=== PATIENT | male | born 1990 | race Two or more races ===

== ENCOUNTER 2022-07-19 14:42 | Observation (INO) ==
[2022-07-19] MEDS ORDERED: SODIUM CHLORIDE 0.9% 1000ML 2,000 ML IV ONE (15:22)
[2022-07-19 15:44] LABS: Basophils # (auto) 0.02 K/uL (0-0.2); Basophils % (auto) 0.2 %; Hematocrit (blood only) 47.4 % (42.0-52.0); Hemoglobin 16.3 g/dl (14.0-18.0); Immature Granulocytes # (auto) 0.15 K/uL (0.01-0.20); Immature Granulocytes % (auto) 1.3 %; Lymphocytes # (auto) 2.44 K/uL (1.2-3.4); Lymphocytes % (auto) 20.6 %; Mean Corpuscular Hgb Conc 34.4 g/dL (32.0-36.0); Mean Corpuscular Volume 92.9 fL (80.0-100.0); Mean Platelet Volume 11.9 fL (9.4-12.4); Monocytes # (auto) 0.97 K/uL (0.11-0.59); Monocytes % (auto) 8.2 %; Neutrophils # (auto) 8.28 K/uL (1.40-6.50); Neutrophils % (auto) 69.7 %; Platelet Count 265 K/uL (130-400); RDW Coefficient of Variation 12.3 % (11.5-14.5); RDW Standard Deviation 42.4 fL (36.4-46.3); White Blood Count 11.86 K/ul (4.8-10.8)
[2022-07-19 15:58] LABS: Alanine Aminotransferase 25 U/L (7-52); Albumin Globulin Ratio 1.6 (0.9-2); Albumin Level 4.5 gm/dl (3.4-5.0); Alkaline Phosphatase 49 U/L (34-104); Anion Gap 8 (3-11); Aspartate Aminotransferase 13 U/L (13-39); BUN Creatinine Ratio 23.5 (10-20); Bilirubin,Total 0.6 mg/dl (0.2-1.0); Blood Urea Nitrogen 19 mg/dl (6-23); C Reactive Protein < 0.50 mg/dl (0-0.5); Calcium 9.4 mg/dl (8.6-10.3); Carbon Dioxide 31 mmol/L (21-32); Chloride 101 mmol/L (98-107); Est GFR (African American) 137.3 ml/min; Est GFR (Non-African American) 118.4 ml/min; Globulin 2.8 gm/dl (2.5-4.0); Glucose 104 mg/dl (70-99(Fasting)); Magnesium 2.3 mg/dl (1.7-2.4); Phosphorus 4.2 mg/dl (2.5-4.9); Potassium 3.6 mmol/L (3.5-5.1); Sodium 140 mmol/L (136-145); Total Protein 7.3 gm/dl (6.0-8.3)
[2022-07-19 16:11] LABS: Lyme Ab IgG w/WB Rflx Negative (Negative)
[2022-07-19 16:16] LABS: Lyme Ab IgM w/WB Rflx Positive (Negative)
[2022-07-19] MEDS ORDERED: OPTIRAY 320 500ml IV ONE (16:59)
--- NOTE | 2022-07-19 17:16 | CT Scan Report ---
CT angio head w con, CT angio neck with con, CT head/brain wo con CLINICAL HISTORY: 31 years-old Male with aphasia, bilateral lower facial weakness. Acute strokelik e symptoms COMPARISON STUDY: Brain MRI 07/13/2022 TECHNIQUE: Unenhanced axial CT scan of the brain is performed. Subsequently, following the IV adminis tration of 106 cc of Optiray, CT angiogram of the head and neck was performed from the aortic arch to the skull apex. Images are reviewed in the axial, sagittal, and coronal planes. 3-D MIPS images are created and assessed. IV contrast was administered without complication. All measurements were obtain ed according to NASCET criteria. A dose lowering technique was utilized adhering to the principles of ALARA. CT DOSE: 1196.50 mGy.cm FINDINGS: CT BRAIN: There is no acute intracranial hemorrhage, midline shift, hydrocephalus, acute territorial infarct or abnormal extra-axial collections. Ill-defined white matter aNo lesions throughout the left greater t flores right cerebral hemispheres redemonstrated with surrounding associated vasogenic edema, pronounced in the left frontal and parietal lobes. These lesions demonstrate areas of peripheral enhancement on the prior MRI. The mastoid air cells and middle ear cavities are clear. No calvarial fracture. Paranasal sinuses are clear. CT ANGIOGRAM OF THE HEAD AND NECK: Normal three-vessel morphology of the thoracic aortic arch. Patency of the nominate and imaged subcla vian arteries. The common and internal carotid arteries are patent. The bilateral anterior and middle cerebral arteries are also patent. The vertebrobasilar system and posterior cerebral arteries are wi paz patent. origin of the right posterior cerebral artery. There is no aneurysm, high-grade st enosis, or proximal branch occlusion identified. Dural sinuses appear patent. The lung apices appear clear. Unremarkable soft tissues. No acute fracture. IMPRESSION: 1. Compared to the study from 07/06/2022, once again there is no acute intracranial abnormality, aneury sm, dissection, high-grade stenosis or arterial occlusion. 2. The white matter lesions with peripheral enhancement and vasogenic edema best seen on the MRI from 07/13/2022 are suboptimally evaluated by CT technique. Again, the primary differential considerations would include demyelinating disease versus neoplasm. Close follow-up with neurology is needed. ACT 112: Negative or not required by law. The above report was generated using voice recognition software. It may contain grammatical, syntax o r spelling errors. Electronically signed by: Aaron Reyez M.D. 07/19/2022 5:15 PM
[2022-07-19 17:43] LABS: Appearance Urine Cloudy (Clear); Bacteria Urine Automated Negative (Negative); Bilirubin Urine Negative (Negative); Blood Urine Negative (Negative); Cast Urine Automated 0 /lpf (0-5); Color Urine Yellow; Glucose Urine UA Negative (Negative); Ketones Urine Negative (Negative); Leukocyte Esterase Urine Negative (Negative); Nitrite Urine Negative (Negative); Protein Urine Negative (Negative); RBC Urine Automated 0-4 /hpf (0-4); Specific Gravity Urine > 1.045 (1.000-1.030); Urobilinogen Urine Negative (Negative); pH Urine 7.5 (4.5-7.5)
--- NOTE | 2022-07-19 17:57 | Electrocardiogram Report ---
Test Reason : Blood Pressure : / mmHG Vent. Rate : 062 BPM Atrial Rate : 062 BPM P-R Int : 150 ms QRS Dur : 092 ms QT Int : 420 ms P-R-T Axes : 057 012 014 degrees QTc Int : 426 ms Poor data quality, interpretation may be adversely affected Normal sinus rhythm with sinus arrhythmia Incomplete right bundle branch block Borderline ECG When compared with ECG of 06-JUL-2022 12:22, No significant change was found Confirmed by Jed Torres ([id number]) on 07/19/2022 5:56:47 PM Referred By: Confirmed By:Jarvis Torres
[2022-07-19] MEDS ORDERED: methylPREDNISolone 1,000 MG in DEXTROSE 5% 250 ML IV STA (18:27)
--- NOTE | 2022-07-19 18:59 | History & Physical Report ---
Date of Service July 19, 2022 Assessment & Plan (1) Multiple sclerosis: Plan: Dysarthria, suspect MS -CThead, CTA h/neck: No acute abnormality, aneurysm, dissection, high-grade stenosis. White matter lesions with peripheral enhancement and vasogenic edema suboptimally evaluated by CT. -CTAhead: No acute aneurysm, dissection, stenosis, arterial occlusion. White matter lesions better appreciated on prior MRI. Leukocytosis of 11.86 No gross electrolyte abnormality UA bland Lyme IgM is again positive, without positive IgG. Prior Western blot pending negative. Will defer conversion to Rocephin, and follow-up for repeat Western blot at this time. If positive, would switch to Rocephin for [employer] coverage Case was discussed with on-call neurology prior to admission. Recommended to continue IV steroids 1 g daily. Complete pending MS work-up including MRI of cervical spine with and without contrast, lumbar puncture with MS panel while inpatient. Follow-up with IR a.m. 07/20 for LP with IR PA Due to dysarthria and feeling of tongue heaviness, and dysarthria we will keep n.p.o. pending speech eval. On admission no airway obstruction, uvula midline, tongue swelling not appreciated Prior MRI 07/13: Multiple intraparenchymal lesion, largest seen within the left centrum semiovale extending to the periventricular region measuring 2.3 x 1.5 x 2. 1 cm . No cysts significant edema seen surrounding the lesions.Differential diagnosis includes metastatic disease, atypical inflammatory, processes such as multiple sclerosis or infectious process. Hypovitaminosis D Levels previously very low, 29 Repeat level pending DVT prophylaxis: Pharmacal prophylaxis deferred pending LP. SCDs Diet: N.p.o. due to dysarthria and tongue heaviness, advance once able to tolerate bedside swallow and symptoms improved CODE STATUS: Full code Disposition: Medical/surgical (2) Vitamin D deficiency: (3) Aphasia: History of Present Illness Primary Care Provider: NO PCP Khoa is a 31-year-old male with recently diagnosed with multiple sclerosis who presents with worsening dysarthria without receptive aphasia. Patient has difficulty speaking; however he is having more difficulty forming words and is able to communicate via text or whiteboard without difficulty. He reports that his symptoms began with dysarthria and some mild headache 2 weeks ago for which she was seen for Lyme and received doxycycline, however his symptoms worsened after 1 week and he presented for reevaluation. He reports he was told he had MS with multiple areas in the MRI which were abnormal. He was given 3 doses of IV steroids, and then started on methylprednisolone. He reports that he does have more blurry vision in the last week which he is not sure whether or not this is due to his glasses. He has not had any double vision/diplopia. Denies fever, chills, sweats. No nausea/vomiting. No abdominal pain. No chest pain. No shortness of breath. He does not have a headache at time of bedside assessment. Has not taken oypl-pus-zazlnpo medicines, reports he only takes methylprednisolone which she did bring with him and the antibiotic as he was previously described. History of allergies with OTC treatment. 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 He does endorse some dizziness when standing still, and slight headache before coming in which is improved at time of bedside assessment Medical History: Reviewed Medications: Reviewed Surgical History: Reviewed Family history: Reviewed Allergies: Reviewed Social History: No tobacco/alcohol use Code Status: Full code Allergies Allergy/AdvReac Type Severity Reaction Status Date / Time aspirin Allergy Unknown Verified 07/17/22 07:45 Home Medications Medication Instructions Recorded Confirmed Type doxycycline monohydrate 100 mg 100 mg PO BID 07/13/22 07/19/22 History tablet cetirizine 10 mg capsule (Zyrtec) 10 mg PO DAILY PRN Allergy Symptoms 07/14/22 07/19/22 History methylprednisolone 4 mg tablets in 4 mg PO .COMPLEX #21 ea 07/16/22 07/19/22 Rx a dose pack (Medrol (Ze)) Past Med/Surg History Surgical History H/O hemorrhoidectomy S/P tonsillectomy Family History Mother Hypertension Social History Smoking Status: Never smoker Feels Safe at Home: Yes Review of Systems Review of Systems: All systems reviewed & are unremarkable except as noted in HPI & below Physical Exam Physical Exam: General: A&Ox3. NAD. Cooperative. HEENT: Atraumatic, normocephalic. Pulm: CTAB A&P. -wheezes, -rales, -rhonchi. Symmetrical chest rise. No increased work of breathing. No respiratory distress. Cardiac: RRR, -mrg. Radial pulses intact and symmetrical. Abdominal: Nontender, nondistended, soft. BS present. Neurologic: Pupils equal and reactive to light. EOM intact without gaze preference or deviation. Vision/hearing grossly intact. Vision without field cuts, patient does endorse some blurry vision which she is not sure whether is due to glasses but is acutely worse in the last week. No field cuts, no diplopia on EOM testing. No facial asymmetry. Midline tongue protrusion patient is with pronounced dysarthria. No expressive or receptive aphasia, is able to communicate normally using his phone to text. MOTOR: Upper extremity: 5/5 hog slaughterer strength, elbow flexion, elbow extension bilaterally. Soft touch intact in hands bilaterally without asymmetry. Lower extremity: Ankle dorsiflexion/plantarflexion 5/5 bilaterally, sensation intact bilaterally without asymmetry. Results & Data Results & Data Vital Signs (Past 12 Hours) Vital Signs Temp Pulse Pulse Pulse Resp BP BP 07/19/22 15:39 07/19/22 15:10 71 20 140/95 07/19/22 15:09 74 20 07/19/22 15:05 60 07/19/22 14:45 36.6 C 83 20 161/101 H BP Pulse Ox O2 Del Method 07/19/22 15:39 97 Room Air 07/19/22 15:10 98 Room Air 07/19/22 15:09 140/95 96 Room Air 07/19/22 15:05 07/19/22 14:45 96 Room Air PG Care Time/CCT Total # of Minutes Spent Total Time Spent with Patient: Total time spent is greater than 50% in coordination of care (as documented) at patient's floor/unit and/or counseling patient: Coding Level of Care Code 43371 INT INP/OBS CARE 2/55MIN Diagnoses Multiple sclerosis G35 Vitamin D deficiency E55.9 Aphasia R47.01
--- NOTE | 2022-07-19 22:30 | Emergency Department Note ---
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 He further adds that he feels numbness at the lower aspect bilaterally of his face. He denies trouble swallowing or breathing. Denies any fevers, chills, cough, congestion, GI or symptoms. He did have a positive Lyme screen during his emergency department evaluation last week however his Western blot subsequently was negative and so he is not currently on treatment for Lyme. He denies any known tick bites otherwise. On my evaluation the patient is no acute distress, afebrile stable vital signs. He appears clinically dry. He exhibits mild weakness of the bilateral aspects of the lower face without overt facial droop. He exhibits moderate-severe expressive aphasia where words are unintelligible at times though he is able to communicate given context. He has no focal extremity weakness. EKG without overt acute ischemia. WBC 11.8K nonspecific. H/H and platelets within normal limits. Chemistry without metabolic acidosis. Electrolytes LFTs without significant abnormality. ESR and CRP are not elevated. TSH within normal limits. UA without convincing evidence of infection. Lyme screen was again positive for IgM antibody with Western blot pending. Covid-19 RNA, NAAT negative. CT head and CTA of the head and neck were negative for acute abnormalities though unable to optimally assess previously seen white matter lesions. Case was discussed with Dr. Garcia, Neurology on-call. Appreciate consultation/recommendations and given the patient's acute worsening in severity of symptoms agrees with plan for admission for IV steroids recommending 1000 mg of Solu-Medrol for the next 3 days. Additionally recommends proceeding with the patient's recently planned outpatient evaluation including MRI of the cervical spine with and without contrast and lumbar puncture and MS panel. Case was discussed with Dr. Talbot, [facility] hospitalist, who will evaluate the patient for admission. Triage Nursing notes reviewed and agree them. Prior/outside medical records reviewed Vital Signs: reviewed Differential diagnosis: Infection, dehydration, metabolic abnormality, hypo/hyperglycemia, electrolyte disturbance, anemia, hypoxia, cardiac sources, intracerebral event, toxicologic, neurologic, as well as other pathologies. ER treatment provided: See below. Diagnostics interpreted by me: ECG: Normal sinus rhythm with sinus arrhythmia, 62 bpm, no ectopy, incomplete right bundle branch block, no overt ST elevation or depression, QTc 426, QRS 92. Cardiac Monitoring: An order for continuous cardiac monitoring was placed and demonstrated Normal sinus rhythm with sinus arrhythmia, 62 bpm, no ectopy. Laboratory studies: See below Imaging studies: See below Consultation(s): Dr. Garcia, Neurology on-call. Dr. Talbot, [facility] hospitalist on-call. 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 He further adds that he feels numbness at the lower aspect bilaterally of his face. He denies trouble swallowing or breathing. Denies any fevers, chills, cough, congestion, GI or symptoms. He did have a positive Lyme screen during his emergency department evaluation last week however his Western blot subsequently was negative and so he is not current ly on treatment for Lyme. He denies any known tick bites otherwise. ROS: See above HPI for pertinent positives & negatives. A total of 10 systems reviewed and were otherwise negative. VITALS:See Below PHYSICAL EXAMINATION: GENERAL: Awake, alert, well-appearing, in no distress HENT: Normocephalic, atraumatic. Oropharynx with dry mucous membranes and otherwise unremarkable. No tongue elevation or trismus. EYES: Normal conjunctiva. Sclera non-icteric. NECK: Supple. No nuchal rigidity. FROM. No JVD. No stridor. RESPIRATORY: Clear to auscultation. CARDIAC: Regular rate, normal rhythm. Extremities warm and well perfused. Pulses equal. ABDOMEN: Soft, non-distended. No tenderness to palpation. No rebound or guarding . No masses. RECTAL: Deferred. MUSCULOSKELETAL: Chest examination reveals no tenderness. The back is symmetrical on inspection without obvious abnormality. There is no CVA tenderness to palpation. No joint edema. LOWER EXTREMITIES: Calves are equal size bilaterally and non-tender. No edema. No discoloration. NEURO: Mild weakness of the bilateral aspects of the lower face without overt facial droop. He exhibits moderate-severe expressive aphasia where words are unintelligible at times though he is able to communicate given context. 5/5 strength and SILT x 4 extremities. Cerebellar function intact including [id number], alternating palms, [id number]. SKIN: No rash or jaundice noted. 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 Beliefs That Will Affect Care: None Current Living Situation: Alone Other Information That Helps Us Care for You: No Feels Safe at Home: Yes Safety Concerns: Feels Safe At This Time Assistive Devices: Glasses Allergies Allergies Allergy/AdvReac Type Severity Reaction Status Date / Time aspirin Allergy Unknown Verified 07/17/22 07:45 Home Meds Home Medications Medication Instructions Recorded Confirmed doxycycline monohydrate 100 mg 100 mg PO BID 07/13/22 07/19/22 tablet cetirizine 10 mg capsule (Zyrtec) 10 mg PO DAILY PRN Allergy Symptoms 07/14/22 07/19/22 Previous Rx's Medication Instructions Recorded methylprednisolone 4 mg tablets in 4 mg PO .COMPLEX #21 ea 07/16/22 a dose pack (Medrol (Ze)) Results & Data (ED) Vital Signs Vital Signs - 24 hr 07/19/22 14:45 07/19/22 15:05 07/19/22 15:09 Temperature 36.6 C Temperature Source Temporal Artery Scan Pulse Rate 83 60 Pulse Rate [Apical] 74 Pulse Rate [Left Apical] Pulse Rhythm [Left Apical] Pulse Strength [Left Apical] Respiratory Rate 20 20 Respiratory Effort / Characteristics Non-Labored Non-Labored Respiratory Depth Normal Normal Blood Pressure 161/101 H Blood Pressure [Left Arm] Blood Pressure [Right Arm] 140/95 Blood Pressure Mean 121 Blood Pressure Mean [Left Arm] Blood Pressure Mean [Right Arm] 110 Pulse Oximetry 96 96 Oxygen Delivery Method Room Air Room Air Sepsis Recent Fever Within 48 Hours No Sepsis New/Unexplained Change in Mental Status Yes Sepsis Action Taken by Nursing No Action Required 07/19/22 15:10 07/19/22 15:39 Temperature Temperature Source Pulse Rate Pulse Rate [Apical] Pulse Rate [Left Apical] 71 Pulse Rhythm [Left Apical] Regular Pulse Strength [Left Apical] Normal Respiratory Rate 20 Respiratory Effort / Characteristics Non-Labored Spontaneous Respiratory Depth Normal Blood Pressure Blood Pressure [Left Arm] 140/95 Blood Pressure [Right Arm] Blood Pressure Mean Blood Pressure Mean [Left Arm] 110 Blood Pressure Mean [Right Arm] Pulse Oximetry 98 97 Oxygen Delivery Method Room Air Room Air Sepsis Recent Fever Within 48 Hours Sepsis New/Unexplained Change in Mental Status Sepsis Action Taken by Nursing Laboratory Data Attestation: I reviewed the patient's lab results. 07/19/22 15:07 07/19/22 15:07 Lab Results 07/19/22 07/19/22 07/19/22 Range/Units 15:07 15:07 15:07 WBC 11.86 H (4.8-10.8) K/ul RBC 5.10 (4.70-6.10) M/uL Hgb 16.3 (14.0-18.0) g/dl Hct 47.4 (42.0-52.0) % MCV 92.9 (80.0-100.0) fL MCH 32.0 (25.0-34.0) pg MCHC 34.4 (32.0-36.0) g/dL RDW Std Deviation 42.4 (36.4-46.3) fL RDW Coeff of Erma 12.3 (11.5-14.5) % Plt Count 265 (130-400) K/uL MPV 11.9 (9.4-12.4) fL Immature Gran % (Auto) 1.3 % Neut % (Auto) 69.7 % Lymph % (Auto) 20.6 % Levy % (Auto) 8.2 % Eos % (Auto) 0.0 % Baso % (Auto) 0.2 % Neut # (Auto) 8.28 H (1.40-6.50) K/uL Lymph # (Auto) 2.44 (1.2-3.4) K/uL Levy # (Auto) 0.97 H (0.11-0.59) K/uL Eos # (Auto) 0.00 (0-0.50) K/uL Baso # (Auto) 0.02 (0-0.2) K/uL Immature Gran # (Auto) 0.15 (0.01-0.20) K/uL ESR 10 (0-15) mm/hr Sodium 140 (136-145) mmol/L Potassium 3.6 (3.5-5.1) mmol/L Chloride 101 (98-107) mmol/L Carbon Dioxide 31 (21-32) mmol/L Anion Gap 8 (3-11) BUN 19 (6-23) mg/dl Creatinine 0.81 (0.6-1.4) mg/dl Est Cr Clr Drug Dosing Not Reportable Est GFR ( Amer) 137.3 ml/min Est GFR (Non-Af Amer) 118.4 ml/min BUN/Creatinine Ratio 23.5 H (10-20) Glucose 104 H (70-99(Fasting)) mg/dl Calcium 9.4 (8.6-10.3) mg/dl Phosphorus 4.2 (2.5-4.9) mg/dl Magnesium 2.3 (1.7-2.4) mg/dl Total Bilirubin 0.6 (0.2-1.0) mg/dl AST 13 (13-39) U/L ALT 25 (7-52) U/L Alkaline Phosphatase 49 (34-104) U/L C-Reactive Protein < 0.50 (0-0.5) mg/dl Total Protein 7.3 (6.0-8.3) gm/dl Albumin 4.5 (3.4-5.0) gm/dl Globulin 2.8 (2.5-4.0) gm/dl Albumin/Globulin Ratio 1.6 (0.9-2) TSH (0.300-4.500) uIu/ml Urine Color Urine Appearance (Clear) Urine pH (4.5-7.5) Ur Specific [place] (1.000-1.030) Urine Protein (Negative) Urine Glucose (UA) (Negative) Urine Ketones (Negative) Urine Blood (Negative) Urine Nitrite (Negative) Urine Bilirubin (Negative) Urine Urobilinogen (Negative) Ur Leukocyte Esterase (Negative) Urine WBC (Auto) (0-5) /hpf Urine RBC (Auto) (0-4) /hpf U Hyaline Cast (Auto) (0-5) /lpf U Epithel Cells (Auto) (0-5) /lpf Urine Bacteria (Auto) (Negative) Lyme Disease IgG Ab (Negative) Lyme Disease IgM Ab (Negative) 07/19/22 07/19/22 07/19/22 Range/Units 15:07 15:07 17:15 WBC (4.8-10.8) K/ul RBC (4.70-6.10) M/uL Hgb (14.0-18.0) g/dl Hct (42.0-52.0) % MCV (80.0-100.0) fL MCH (25.0-34.0) pg MCHC (32.0-36.0) g/dL RDW Std Deviation (36.4-46.3) fL RDW Coeff of Erma (11.5-14.5) % Plt Count (130-400) K/uL MPV (9.4-12.4) fL Immature Gran % (Auto) % Neut % (Auto) % Lymph % (Auto) % Levy % (Auto) % Eos % (Auto) % Baso % (Auto) % Neut # (Auto) (1.40-6.50) K/uL Lymph # (Auto) (1.2-3.4) K/uL Levy # (Auto) (0.11-0.59) K/uL Eos # (Auto) (0-0.50) K/uL Baso # (Auto) (0-0.2) K/uL Immature Gran # (Auto) (0.01-0.20) K/uL ESR (0-15) mm/hr Sodium (136-145) mmol/L Potassium (3.5-5.1) mmol/L Chloride (98-107) mmol/L Carbon Dioxide (21-32) mmol/L Anion Gap (3-11) BUN (6-23) mg/dl Creatinine (0.6-1.4) mg/dl Est Cr Clr Drug Dosing Est GFR ( Amer) ml/min Est GFR (Non-Af Amer) ml/min BUN/Creatinine Ratio (10-20) Glucose (70-99(Fasting)) mg/dl Calcium (8.6-10.3) mg/dl Phosphorus (2.5-4.9) mg/dl Magnesium (1.7-2.4) mg/dl Total Bilirubin (0.2-1.0) mg/dl AST (13-39) U/L ALT (7-52) U/L Alkaline Phosphatase (34-104) U/L C-Reactive Protein (0-0.5) mg/dl Total Protein (6.0-8.3) gm/dl Albumin (3.4-5.0) gm/dl Globulin (2.5-4.0) gm/dl Albumin/Globulin Ratio (0.9-2) TSH 1.987 (0.300-4.500) uIu/ml Urine Color Yellow Urine Appearance Cloudy A (Clear) Urine pH 7.5 (4.5-7.5) Ur Specific [place] > 1.045 H (1.000-1.030) Urine Protein Negative (Negative) Urine Glucose (UA) Negative (Negative) Urine Ketones Negative (Negative) Urine Blood Negative (Negative) Urine Nitrite Negative (Negative) Urine Bilirubin Negative (Negative) Urine Urobilinogen Negative (Negative) Ur Leukocyte Esterase Negative (Negative) Urine WBC (Auto) 1-5 (0-5) /hpf Urine RBC (Auto) 0-4 (0-4) /hpf U Hyaline Cast (Auto) 0 (0-5) /lpf U Epithel Cells (Auto) 5-10 H (0-5) /lpf Urine Bacteria (Auto) Negative (Negative) Lyme Disease IgG Ab Negative (Negative) Lyme Disease IgM Ab Positive A (Negative) Administered Medications Potassium Chloride/Sodium Chloride (Normal Saline W/20 Meq Kcl) 20 meq in 1,000 mls @ 120 mls/hr IV .Q8H20M MARTINEZ; Protocol Stop: 08/18/22 22:14 Last Admin: 07/20/22 00:25 Dose: 120 mls/hr Documented By: NMS Discontinued Medications Gadobutrol (Gadobutrol 65ml Vial) 8 ml IV ONCE ONE Stop: 07/19/22 23:17 Last Admin: 07/19/22 23:16 Dose: 8 ml Documented By: RUBY Sodium Chloride (Nss 1000ml) 2,000 mls @ 999 mls/hr IV .Q2H1M ONE Stop: 07/19/22 17:22 Last Infusion: 07/19/22 17:45 Dose: 0 mls/hr Documented By: Admin: 07/19/22 15:36 Dose: 999 mls/hr Documented By: TW Methylprednisolone 1,000 mg/ (Dextrose) 266 mls @ 266 mls/hr IV NOW STA Stop: 07/19/22 19:26 Last Infusion: 07/19/22 21:38 Dose: 0 mls/hr Documented By: Admin: 07/19/22 20:36 Dose: 266 mls/hr Documented By: EMB Ioversol (Optiray 320 500ml) 106 ml IV ONCE ONE Stop: 07/19/22 17:00 Last Admin: 07/19/22 16:59 Dose: 106 ml Documented By: EAB Imaging Data Radiologist's Impression: Head CT 07/19/22 15:19 CT angio head w con, CT angio neck with con, CT head/brain wo con CLINICAL HISTORY: 31 years-old Male with aphasia, bilateral lower facial weakness. Acute strokelike symptoms COMPARISON STUDY: Brain MRI 07/13/2022 TECHNIQUE: Unenhanced axial CT scan of the brain is performed. Subsequently, following the IV administration of 106 cc of Optiray, CT angiogram of the head and neck was performed from the aortic arch to the skull apex. Images are r eviewed in the axial, sagittal, and coronal planes. 3-D MIPS images are created and assessed. IV contrast was administered without complication. All measurements were obtained according to NASCET criteria. A dose lowering technique was utilized adhering to the principles of ALARA. CT DOSE: 1196.50 mGy.cm FINDINGS: CT BRAIN: There is no acute intracranial hemorrhage, midline shift, hydrocephalus, acute territorial infarct or abnormal extra-axial collections. Ill-defined white matter aNo lesions throughout the left greater than right cerebral hemispheres redemonstrated with surrounding associated vasogenic edema, pronounced in the left frontal and parietal lobes. These lesions demonstrate areas of peripheral enhancement on the prior MRI. The mastoid air cells and middle ear cavities are clear. No calvarial fracture. Paranasal sinuses are clear. CT ANGIOGRAM OF THE HEAD AND NECK: Normal three-vessel morphology of the thoracic aortic arch. Patency of the nominate and imaged subclavian arteries. The common and internal carotid arteries are patent. The bilateral anterior and middle cerebral arteries are also patent. The vertebrobasilar system and posterior cerebral arteries are widely patent. origin of the right posterior cerebral artery. There is no aneurysm, high-grade stenosis, or proximal branch occlusion identified. Dural sinuses appear patent. The lung apices appear clear. Unremarkable soft tissues. No acute fracture. IMPRESSION: 1. Compared to the study from 07/06/2022, once again there is no acute intracranial abnormality, aneurysm, dissection, high-grade stenosis or arterial occlusion. 2. The white matter lesions with peripheral enhancement and vasogenic edema best seen on the MRI from 07/13/2022 are suboptimally evaluated by CT technique. Again, the primary differential considerations would include demyelinating disease versus neoplasm. Close follow-up with neurology is needed. ACT 112: Negative or not required by law. The above report was generated using voice recognition software. It may contain grammatical, syntax or spelling errors. Electronically signed by: Aaron Reyez M.D. 07/19/2022 5:15 PM Head CTA 07/19/22 15:19 CT angio head w con, CT angio neck with con, CT head/brain wo con CLINICAL HISTORY: 31 years-old Male with aphasia, bilateral lower facial weakness. Acute strokelike symptoms COMPARISON STUDY: Brain MRI 07/13/2022 TECHNIQUE: Unenhanced axial CT scan of the brain is performed. Subsequently, following the IV administration of 106 cc of Optiray, CT angiogram of the head a nd neck was performed from the aortic arch to the skull apex. Images are reviewed in the axial, sagittal, and coronal planes. 3-D MIPS images are created and assessed. IV contrast was administered without complication. All measurements were obtained according to NASCET criteria. A dose lowering tech nique was utilized adhering to the principles of ALARA. CT DOSE: 1196.50 mGy.cm FINDINGS: CT BRAIN: There is no acute intracranial hemorrhage, midline shift, hydrocephalus, acute territorial infarct or abnormal extra-axial collections. Ill-defined white matter aNo lesions throughout the left greater than right cerebral hemispheres redemonstrated with surrounding associated vasogenic edema, pronounced in the left frontal and parietal lobes. These lesions demonstrate areas of peripheral enhancement on the prior MRI. The mastoid air cells and middle ear cavities are clear. No calvarial fracture. Paranasal sinuses are clear. CT ANGIOGRAM OF THE HEAD AND NECK: Normal three-vessel morphology of the thoracic aortic arch. Patency of the nominate and imaged subclavian arteries. The common and internal carotid arteries are patent. The bilateral anterior and middle cerebral arteries are also patent. The vertebrobasilar system and posterior cerebral arteries are widely patent. origin of the right posterior cerebral artery. There is no aneurysm, high-grade stenosis, or proximal branch occlusion identified. Dural sinuses appear patent. The lung apices appear clear. Unremarkable soft tissues. No acute fracture. IMPRESSION: 1. Compared to the study from 07/06/2022, once again there is no acute intracranial abnormality, aneurysm, dissection, high-grade stenosis or arterial occlusion. 2. The white matter lesions with peripheral enhancement and vasogenic edema best seen on the MRI from 07/13/2022 are suboptimally evaluated by CT technique. Again, the primary differential considerations would include demyelinating disease versus neoplasm. Close follow-up with neurology is needed. ACT 112: Negative or not required by law. The above report was generated using voice recognition software. It may contain grammatical, syntax or spelling errors. Electronically signed by: Aaron Reyez M.D. 07/19/2022 5:15 PM Neck CTA 07/19/22 15:19 CT angio head w con, CT angio neck with con, CT head/brain wo con CLINICAL HISTORY: 31 years-old Male with aphasia, bilateral lower facial weakness. Acute strokelike symptoms COMPARISON STUDY: Brain MRI 07/13/2022 TECHNIQUE: Unenhanced axial CT scan of the brain is performed. Subsequently, following the IV administration of 106 cc of Optiray, CT angiogram of the head and neck was performed from the aortic arch to the skull apex. Images are reviewed in the axial, sagittal, and coronal planes. 3-D MIPS images are created and assessed. IV contrast was administered without complication. All everton surements were obtained according to NASCET criteria. A dose lowering technique was utilized adhering to the principles of ALARA. CT DOSE: 1196.50 mGy.cm FINDINGS: CT BRAIN: There is no acute intracranial hemorrhage, midline shift, hydrocephalus, acute territorial infarct or abnormal extra-axial collections. Ill-defined white matter aNo lesions throughout the left greater than right cerebral hemispheres redemonstrated with surrounding associated vasogenic edema, pronounced in the left frontal and parietal lobes. These lesions demonstrate areas of peripheral enhancement on the prior MRI. The mastoid air cells and middle ear cavities are clear. No calvarial fracture. Paranasal sinuses are clear. CT ANGIOGRAM OF THE HEAD AND NECK: Normal three-vessel morphology of the thoracic aortic arch. Patency of the nominate and imaged subclavian arteries. The common and internal carotid arteries are patent. The bilateral anterior and middle cerebral arteries are also patent. The vertebrobasilar system and posterior cerebral arteries are widely patent. origin of the right posterior cerebral artery. There is no aneurysm, high-grade stenosis, or proximal branch occlusion identified. Dural sinuses appear patent. The lung apices appear clear. Unremarkable soft tissues. No acute fracture. IMPRESSION: 1. Compared to the study from 07/06/2022, once again there is no acute intracranial abnormality, aneurysm, dissection, high-grade stenosis or arterial occlusion. 2. The white matter lesions with peripheral enhancement and vasogenic edema best seen on the MRI from 07/13/2022 are suboptimally evaluated by CT technique. Again, the primary differential considerations would include demyelinating disease versus neoplasm. Close follow-up with neurology is needed. ACT 112: Negative or not required by law. The above report was generated using voice recognition software. It may contain grammatical, syntax or spelling errors. Electronically signed by: Aaron Reyez M.D. 07/19/2022 5:15 PM Discharge Plan Visit Data Chief Complaint: Allergic Reaction Stated Complaint: DIFFICULTY TALKING, SWOLLEN TONGUE, DIZZY, VISION ED Provider: Oumar Vazquez Discharge Problem: Demyelinating disease, Aphasia, Borderline Lyme serology Patient Disposition: Admitted As Inpatient Discharge Instructions Interventions: ED Discharge Assessment Last Done: 07/19/22 22:08
[2022-07-19] MEDS ORDERED: GADOBUTROL 65ML VIAL IV ONE (23:16)
[2022-07-20] MEDS: NSS + 20MEQ KCL 20 MEQ/1,000 ML BAG IV SCH ×2 (00:25→10:02)
[2022-07-20] MEDS ORDERED: Nursing to Pharmacy Communication SCH (00:30)
--- NOTE | 2022-07-20 01:05 | Magnetic Resonance Report ---
Exam(s): MRI C SPINE IV Amt: 8cc gadavist EXAM: MR Cervical Spine With Intravenous Contrast CLINICAL HISTORY: Reason for exam: MS josé antonio. TECHNIQUE: Magnetic resonance images of the cervical spine with intravenous contrast in multiple planes. CONTRAST: Patient received 8cc gadavist of IV contrast COMPARISON: Comparison made to prior CT angiogram of the neck from July 06, 2022. FINDINGS: Vertebrae: There are 7 cervical type vertebral bodies with a mild generalized curve to the left and shallow cervical lordosis. There is normal vertebral body height and alignment. The bone marrow signal is normal. No acute fracture. Spinal cord: The cord is normal in size, shape and signal characteristics. The craniocervical junction is normal without evidence of Chiari malformation. No abnormal enhancement. Soft tissues: The cervical flow voids are intact. DISCS/SPINAL CANAL/NEURAL FORAMINA: C2-C3: The intervertebral disc is normal. Minimal facet arthropathy with mild sinus. C3-C4: There is mild disc degeneration with disc desiccation and annular disc bulge flattening the intrathecal sac. There is minimal to mild facet arthropathy with mild synovitis. C4-C5: There is mild disc degeneration with disc desiccation and annular disc bulge eccentric to the right flattening the ventral thecal sac. There is mild facet arthropathy with mild synovitis. C5-C6: There is mild disc degeneration with disc desiccation and annular disc bulge eccentric to the right flattening the ventral thecal sac. There is mild facet arthropathy with mild synovitis. C6-C7: The intervertebral disc is normal. There is mild right and minimal left facet arthropathy with mild synovitis. C7-T1: The intervertebral disc is normal. There is mild facet joint arthropathy with mild synovitis. IMPRESSION: 1. Mild disc degeneration at C3-4, C4-5 and C5-6 with annular disc bulging flattening the ventral thecal sac.. 2. There is no spinal canal stenosis. 3. No evidence of neural foraminal stenosis. 4. Minimal to mild facet arthropathy with mild synovitis. 5. No evidence of fracture, infection, tumor or myelopathy. Electronically signed by: Marielos Rajan MD 07/20/22 01:04 AM
[2022-07-20 07:42] LABS: Hematocrit (blood only) 47.1 % (42.0-52.0); Hemoglobin 16.2 g/dl (14.0-18.0); Mean Corpuscular Hgb Conc 34.4 g/dL (32.0-36.0); Mean Corpuscular Volume 93.1 fL (80.0-100.0); Mean Platelet Volume 11.4 fL (9.4-12.4); Platelet Count 250 K/uL (130-400); RDW Coefficient of Variation 12.1 % (11.5-14.5); RDW Standard Deviation 42.1 fL (36.4-46.3); Red Blood Count 5.06 M/uL (4.70-6.10); White Blood Count 9.58 K/ul (4.8-10.8)
[2022-07-20 07:59] LABS: BUN Creatinine Ratio 22.7 (10-20); Calcium 9.3 mg/dl (8.6-10.3); Est GFR (African American) 141.7 ml/min; Est GFR (Non-African American) 122.2 ml/min; Potassium 4.3 mmol/L (3.5-5.1)
[2022-07-20] MEDS: methylPREDNISolone 1,000 MG in DEXTROSE 5% 250 ML IV SCH (08:18)
[2022-07-20 08:30] LABS: Basophils # (auto) 0.01 K/uL (0-0.2); Basophils % (auto) 0.1 %; Immature Granulocytes # (auto) 0.09 K/uL (0.01-0.20); Immature Granulocytes % (auto) 0.9 %; Lymphocytes # (auto) 0.78 K/uL (1.2-3.4); Lymphocytes % (auto) 8.1 %; Monocytes # (auto) 0.04 K/uL (0.11-0.59); Monocytes % (auto) 0.4 %; Neutrophils # (auto) 8.66 K/uL (1.40-6.50); Neutrophils % (auto) 90.5 %
--- NOTE | 2022-07-20 10:22 | Neurology Consultation ---
Date of Consultation July 20, 2022 Assessment & Plan (1) Demyelinating disease: Plan NEUROLOGY CONSULTATION Assessment & Plan: Impression: pt with likely Multiple sclerosis, suggestion of possible Tumefactive MS given the large size of the lesion. speech change likely due to his left hemisphere lesion. Recommendations: -finish 3 days IV steroid, tomorrow last day. after that he can be discharged with po prednisone 60mg po daily for 5 days and stop. -do get LP for MS panel work up as planned. mri C spine negative. outpt speech therapy. pt can f/u with Dr. García in neurology clinic after discharge by calling the clinic. Dr. Jere Garcia MD [facility] Neurology Chief Complaint: speech change History of Present Illness: pt with likely MS diagnosis and was seen by Dr. García last week. pt with slight worsening of his speech last few days and came to ED. pt denies weakness. pt has known large demyelinating lesion on left subcortical area. pt this morning feeling ok. getting IV steroid. chart reviewed. Admission/Initial HPI documentation: Khoa is a 31-year-old male with recently diagnosed with multiple sclerosis who presents with worsening dysarthria without receptive aphasia. Patient has difficulty speaking; however he is having more difficulty forming words and is able to communicate via text or whiteboard without difficulty. He reports that his symptoms began with dysarthria and some mild headache 2 weeks ago for which she was seen for Lyme and received doxycycline, however his symptoms worsened after 1 week and he presented for reevaluation. He reports he was told he had MS with multiple areas in the MRI which were abnormal. He was given 3 doses of IV steroids, and then started on methylprednisolone. He reports that he does have more blurry vision in the last week which he is not sure whether or not this is due to his glasses. He has not had any double vision/diplopia. Denies fever, chills, sweats. No nausea/vomiting. No abdominal pain. No chest pain. No shortness of breath. He does not have a headache at time of bedside assessment. Has not taken [id number] medicines, reports he only takes methylprednisolone which she did bring with him and the antibiotic as he was previously described. History of allergies with OTC treatment. 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 He does endorse some dizziness when standing still, and slight headache before coming in which is improved at time of bedside assessment Past Medical History: See chart Meds: See chart I personally reviewed all of the medications Social & Family History: See chart Review of Systems: Per initial HPI on admission. Physical Exam: GEN: NAD HEENT: Normocephalic Neuro: Mental status:A & O x 3.mild dysarthria but no aphasia.No neglect. No apraxia Cranial Nerves:II-XII intact Motor:Normal bulk and tone,5/5 strength x 4 extremities Coordination:Intact FTN testing Reflexes:down going toes mir Sensation: Intact x 4 extremities to touch Chart reviewed I have spent more than 50% educating patient about potential diagnosis and neurological evaluation and coordinating care with patient's treatment team. Total time spent (including chart review and coordination of care): 80 min (this includes chart review). History of Present Illness Attending Physician: Twan Barry MD Allergies Allergy/AdvReac Type Severity Reaction Status Date / Time aspirin Allergy Unknown Verified 07/17/22 07:45 Home Medications Medication Instructions Recorded Confirmed Type doxycycline monohydrate 100 mg 100 mg PO BID 07/13/22 07/19/22 History tablet cetirizine 10 mg capsule (Zyrtec) 10 mg PO DAILY PRN Allergy Symptoms 07/14/22 07/19/22 History methylprednisolone 4 mg tablets in 4 mg PO .COMPLEX #21 ea 07/16/22 07/19/22 Rx a dose pack (Medrol (Ze)) Patient History Medical History Demyelinating disease Surgical History H/O hemorrhoidectomy S/P tonsillectomy Family History Mother Hypertension Social History Smoking Status: Never smoker Do You Dip or Chew Tobacco: No; Hx Alcohol Use: Yes Alcohol type: hard liquor Hx Substance Use: No Preferred Language: [place] Property Economist Required: No Beliefs That Will Affect Care: None Current Living Situation: Alone Other Information That Helps Us Care for You: No Feels Safe at Home: Yes Safety Concerns: Feels Safe At This Time Assistive Devices: Glasses Results & Data Vital Signs (Past 12 Hours) Vital Signs Temp Pulse Resp BP Pulse Ox O2 Del Method 07/20/22 07:31 36.6 C 56 L 18 123/73 97 Room Air
--- NOTE | 2022-07-20 12:39 | Hospitalist Progress Note ---
Date of Service July 20, 2022 Assessment & Plan (1) Multiple sclerosis: Plan: Dysarthria, suspect MS-related - CThead, CTA h/neck: No acute abnormality, aneurysm, dissection, high-grade stenosis. White matter lesions with peripheral enhancement and vasogenic edema suboptimally evaluated by CT. Case was discussed with on-call neurology prior to admission. - Recommended to continue IV steroids 1 g daily x 3 days - Complete pending MS work-up including MRI of cervical spine with and without contrast, lumbar puncture with MS panel while inpatient. - Discussed case with Kj Cortés PA-C, will plan for IR with MS panel @ 1500 today - Formal consult to neurology placed, appreciate assistance, can convert to PO Prednisone following completion of IV steroids and will require close f/u with established neurologist, Dr. García Full liquid diet ordered and BPO SPECIALIST consult placed to ensure can swallow safely, can advance after their eval with appropriate rec's Prior MRI 07/13: Multiple intraparenchymal lesion, largest seen within the left centrum semiovale extending to the periventricular region measuring 2.3 x 1.5 x 2. 1 cm . No cysts significant edema seen surrounding the lesions.Differential diagnosis includes metastatic disease, atypical inflammatory, processes such as multiple sclerosis or infectious process. (2) Vitamin D deficiency: Plan: Acute/unstable Levels previously very low, 29 in 2019 Repeat level even lower at 20.8 - Supplementation initiated with D3 1,000 IU daily (3) Borderline Lyme serology: Plan: Acute/stable Lyme IgM is again positive, without positive IgG. Prior Western blot neg, therefore hold Doxycycline as it likely not contributing to his current symptomatology - Deferred conversion to Rocephin, and follow-up for repeat Western blot at this time. If positive, would switch to Rocephin for RECRUITMENT MANAGER coverage Plan Maintain obs status today, can be discharged home tomorrow after 3rd dose of IV steroids with conversion to oral Prednisone 60mg daily x 5 days per neurology documentation. LP to be performed today. Plan to be d/w Dr. Barry. Admission and Anticipated Discharge Date Admission Date: July 19, 2022 Subjective Patient seen on daily rounds this morning. Continues to manifest difficulty speaking but feels that speech may be slightly better. He has a recent dx of MS. Recommendation was for high dose IV steroids, he has received 2 days so far. He currently has no other neurologic complaints/symptoms. Physical Exam Physical Exam: GENERAL: 31 yo well-developed, well-nourished male. NAD. LUNGS: Clear to auscultation bilaterally. No W/R/R. CARDIOVASCULAR: Regular rate and rhythm. EXTREMITIES: No edema. Non-tender. Peripheral pulses +2/4. FROM with preserved strength NEUROLOGIC: A&O x3. Dysarthria. No focal neurological deficits. CN II-XII grossly intact. Results & Data Results & Data Vital Signs (Past 12 Hours) Vital Signs Temp Pulse Resp BP Pulse Ox O2 Del Method 07/20/22 07:31 36.6 C 56 L 18 123/73 97 Room Air Laboratory Results 07/20/22 07:24 07/20/22 07:24 Diagnostic Findings Cervical Spine MRI 07/19/22 22:15 IMPRESSION: 1. Mild disc degeneration at C3-4, C4-5 and C5-6 with annular disc bulging flattening the ventral thecal sac.. 2. There is no spinal canal stenosis. 3. No evidence of neural foraminal stenosis. 4. Minimal to mild facet arthropathy with mild synovitis. 5. No evidence of fracture, infection, tumor or myelopathy. Electronically signed by: Marielos Rajan MD 07/20/22 01:04 AM PG Care Time/CCT Total # of Minutes Spent Total Time Spent with Patient: Total time spent is greater than 50% in coordination of care (as documented) at patient's floor/unit and/or counseling patient: Coding Level of Care Code 82719 SUB INP/OBS CARE 2/35MIN Diagnoses Multiple sclerosis G35 Vitamin D deficiency E55.9 Borderline Lyme serology R76.8
[2022-07-20] MEDS: CHOLECALCIFEROL 1,000 UNITS 25 MCG TAB PO SCH (14:28)
--- NOTE | 2022-07-20 15:17 | Fluoroscopy Report ---
Lumbar puncture under fluoroscopy INDICATION: MS PROCEDURE: Procedure and risks were explained. Informed consent was obtained. A final timeout was com pleted. The patient was placed prone on the fluoroscopic exam table. The lower lumbar region was prep ped and draped in sterile fashion. 1% lidocaine was utilized for skin anesthesia. Utilizing fluoroscopic guidance, a 22-gauge needle was advanced into the intrathecal space at the L4- 5 disc space level. Spot image was obtained. Approximately 8.5 mL of clear CSF fluid was removed and sent to the lab for analysis. The needle was removed and Band-Aid applied. The patient tolerated the procedure well. Total fluoroscopy time 0.1 minutes. DAP is 4.27 mcGy/m2. IMPRESSION: Lumbar puncture as above. Performed, dictated, and signed by Darius Cortés PA-C; to be co-signed by Dr. Aaron Reyez. Electronically signed by: Aaron Reyez M.D. 07/20/2022 3:43 PM
[2022-07-21] MEDS: CHOLECALCIFEROL 1,000 UNITS 25 MCG TAB PO SCH (08:00)
[2022-07-21] MEDS: methylPREDNISolone 1,000 MG in DEXTROSE 5% 250 ML IV SCH (08:02)
--- NOTE | 2022-07-21 09:00 | Hospitalist Progress Note ---
Date of Service July 21, 2022 Assessment & Plan (1) Multiple sclerosis: Plan: Dysarthria, suspect MS-related - CThead, CTA h/neck: No acute abnormality, aneurysm, dissection, high-grade stenosis. White matter lesions with peripheral enhancement and vasogenic edema suboptimally evaluated by CT. Case was discussed with on-call neurology prior to admission. - Recommended to continue IV steroids 1 g daily x 3 days - Complete pending MS work-up including MRI of cervical spine with and without contrast, lumbar puncture with MS panel while inpatient. - Discussed case with Kj Cortés PA-C, will plan for IR with MS panel @ 1500 today - Formal consult to neurology placed, appreciate assistance, can convert to PO Prednisone following completion of IV steroids and will require close f/u with established neurologist, Dr. García Full liquid diet ordered and PIECE WORK CHECKER consult placed to ensure can swallow safely, can advance after their eval with appropriate rec's Prior MRI 07/13: Multiple intraparenchymal lesion, largest seen within the left centrum semiovale extending to the periventricular region measuring 2.3 x 1.5 x 2. 1 cm . No cysts significant edema seen surrounding the lesions.Differential diagnosis includes metastatic disease, atypical inflammatory, processes such as multiple sclerosis or infectious process. (2) Vitamin D deficiency: Plan: Acute/unstable Levels previously very low, 29 in 2019 Repeat level even lower at 20.8 - Supplementation initiated with D3 1,000 IU daily (3) Borderline Lyme serology: Plan: Acute/stable Lyme IgM is again positive, without positive IgG. Prior Western blot neg, therefore hold Doxycycline as it likely not contributing to his current symptomatology - Deferred conversion to Rocephin, and follow-up for repeat Western blot at this time. If positive, would switch to Rocephin for TAPE CONTROL SKIN OR SPAR MILL OPERATOR coverage Plan Maintain obs status today, can be discharged home tomorrow after 3rd dose of IV steroids with conversion to oral Prednisone 60mg daily x 5 days per neurology documentation. LP to be performed today. Plan to be d/w Dr. Barry. Admission and Anticipated Discharge Date Admission Date: July 19, 2022 Results & Data Results & Data Vital Signs (Past 12 Hours) Vital Signs Temp Pulse Resp BP BP Pulse Ox O2 Del Method 07/21/22 07:29 36.7 C 69 18 139/73 98 Room Air 07/20/22 21:54 36.7 C 88 18 129/75 95 Room Air Laboratory Results 07/20/22 Range/Units 14:53 CSF Albumin Pending CSF IgG Pending CSF IgG Index Pending CSF IgG Synthesis Rate Pending CSF Myelin Basic Protein Pending CSF IgG Oligoclonal Bnd Pending IgG Pending Albumin (KEMAR) Pending PG Care Time/CCT Total # of Minutes Spent Total Time Spent with Patient: Total time spent is greater than 50% in coordination of care (as documented) at patient's floor/unit and/or counseling patient: Coding Diagnoses Multiple sclerosis G35 Vitamin D deficiency E55.9 Borderline Lyme serology R76.8
--- NOTE | 2022-07-21 12:09 | Discharge Summary ---
Date of Service July 21, 2022 Admission HPI Per Admitting Provider Khoa is a 31-year-old male with recently diagnosed with multiple sclerosis who presents with worsening dysarthria without receptive aphasia. Patient has difficulty speaking; however he is having more difficulty forming words and is able to communicate via text or whiteboard without difficulty. He reports that his symptoms began with dysarthria and some mild headache 2 weeks ago for which she was seen for Lyme and received doxycycline, however his symptoms worsened after 1 week and he presented for reevaluation. He reports he was told he had MS with multiple areas in the MRI which were abnormal. He was given 3 doses of IV steroids, and then started on methylprednisolone. He reports that he does have more blurry vision in the last week which he is not sure whether or not this is due to his glasses. He has not had any double vision/diplopia. Denies fever, chills, sweats. No nausea/vomiting. No abdominal pain. No chest pain. No shortness of breath. He does not have a headache at time of bedside assessment. Has not taken yqsd-vvt-[id number] medicines, reports he only takes methylprednisolone which she did bring with him and the antibiotic as he was previously described. History of allergies with OTC treatment. 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 He does endorse some dizziness when standing still, and slight headache before coming in which is improved at time of bedside assessment Medical History: Reviewed Medications: Reviewed Surgical History: Reviewed Family history: Reviewed Allergies: Reviewed Social History: No tobacco/alcohol use Code Status: Full code Admission Exam Per Admitting Provider General: A&Ox3. NAD. Cooperative. HEENT: Atraumatic, normocephalic. Pulm: CTAB A&P. -wheezes, -rales, -rhonchi. Symmetrical chest rise. No increased work of breathing. No respiratory distress. Cardiac: RRR, -mrg. Radial pulses intact and symmetrical. Abdominal: Nontender, nondistended, soft. BS present. Neurologic: Pupils equal and reactive to light. EOM intact without gaze preference or deviation. Vision/hearing grossly intact. Vision without field cuts, patient does endorse some blurry vision which she is not sure whether is due to glasses but is acutely worse in the last week. No field cuts, no diplopia on EOM testing. No facial asymmetry. Midline tongue protrusion patient is with pronounced dysarthria. No expressive or receptive aphasia, is able to communicate normally using his phone to text. MOTOR: Upper extremity: 5/5 operations developer strength, elbow flexion, elbow extension bilaterally. Soft touch intact in hands bilaterally without asymmetry. Lower extremity: Ankle dorsiflexion/plantarflexion 5/5 bilaterally, sensation intact bilaterally without asymmetry. Principal Diagnosis Multiple Sclerosis Flare Discharge Exam General: WD/WN male sitting up in bed, on laptop, NAD HEENT: normocephalic, mmm, trachea midline, EOMI, no nystagmus appreciated Resp: CTA, no w/c, on room air CV: RRR, no significant m/r/g, no pitting edema/calf tenderness GI: +BS, soft/NT : no peres MSK/Neuro: strength intact bilaterally, +aphasia (at times, able to write/use a ssistive devices) + Dysarthria, slow to respond at times, visible frustrated at times but cooperative with examination some difficulty repeating phrases, no issues with language comprehension written questions on phone reviewed Psych: Alert to person/place/time Skin: warm, perfused Discharge Data Allergies Allergy/AdvReac Type Severity Reaction Status Date / Time aspirin Allergy Unknown Verified 07/17/22 07:45 Consultations 07/19/22 18:28 ED Decision to Admit Stat 07/20/22 09:00 Consult Neurology Routine Ordered Studies Head CT 07/19/22 15:19 CT angio head w con, CT angio neck with con, CT head/brain wo con CLINICAL HISTORY: 31 years-old Male with aphasia, bilateral lower facial weakness. Acute strokelike symptoms COMPARISON STUDY: Brain MRI 07/13/2022 TECHNIQUE: Unenhanced axial CT scan of the brain is performed. Subsequently, following the IV administration of 106 cc of Optiray, CT angiogram of the head and neck was performed from the aortic arch to the skull apex. Images are reviewed in the axial, sagittal, and coronal planes. 3-D MIPS images are created and assessed. IV contrast was administered without complication. All measuremen ts were obtained according to NASCET criteria. A dose lowering technique was utilized adhering to the principles of ALARA. CT DOSE: 1196.50 mGy.cm FINDINGS: CT BRAIN: There is no acute intracranial hemorrhage, midline shift, hydrocephalus, acute territorial infarct or abnormal extra-axial collections. Ill-defined white matter aNo lesions throughout the left greater than right cerebral hemispheres redemonstrated with surrounding associated vasogenic edema, pronounced in the left frontal and parietal lobes. These lesions demonstrate areas of peripheral enhancement on the prior MRI. The mastoid air cells and middle ear cavities are clear. No calvarial fracture. Paranasal sinuses are clear. CT ANGIOGRAM OF THE HEAD AND NECK: Normal three-vessel morphology of the thoracic aortic arch. Patency of the nominate and imaged subclavian arteries. The common and internal carotid arteries are patent. The bilateral anterior and middle cerebral arteries are also patent. The vertebrobasilar system and posterior cerebral arteries are widely patent. origin of the right posterior cerebral artery. There is no aneurysm, high-grade stenosis, or proximal branch occlusion identified. Dural sinuses appear patent. The lung apices appear clear. Unremarkable soft tissues. No acute fracture. IMPRESSION: 1. Compared to the study from 07/06/2022, once again there is no acute intracra nial abnormality, aneurysm, dissection, high-grade stenosis or arterial occlusion. 2. The white matter lesions with peripheral enhancement and vasogenic edema best seen on the MRI from 07/13/2022 are suboptimally evaluated by CT technique. Again, the primary differential considerations would include demyelinating disease versus neoplasm. Close follow-up with neurology is needed. ACT 112: Negative or not required by law. The above report was generated using voice recognition software. It may contain grammatical, syntax or spelling errors. Electronically signed by: Aaron Reyez M.D. 07/19/2022 5:15 PM Head CTA 07/19/22 15:19 CT angio head w con, CT angio neck with con, CT head/brain wo con CLINICAL HISTORY: 31 years-old Male with aphasia, bilateral lower facial weakness. Acute strokelike symptoms COMPARISON STUDY: Brain MRI 07/13/2022 TECHNIQUE: Unenhanced axial CT scan of the brain is performed. Subsequently, following the IV administration of 106 cc of Optiray, CT angiogram of the head and neck was performed from the aortic arch to the skull apex. Images are reviewed in the axial, sagittal, and coronal planes. 3-D MIPS images are created and assessed. IV contrast was administered without complication. All measurements were obtained according to NASCET criteria. A dose lowering technique was utilized adhering to the principles of ALARA. CT DOSE: 1196.50 mGy.cm FINDINGS: CT BRAIN: There is no acute intracranial hemorrhage, midline shift, hydrocephalus, acute territorial infarct or abnormal extra-axial collections. Ill-defined white matter aNo lesions throughout the left greater than right cerebral hemispheres redemonstrated with surrounding associated vasogenic edema, pronounced in the left frontal and parietal lobes. These lesions demonstrate areas of peripheral enhancement on the prior MRI. The mastoid air cells and middle ear cavities are clear. No calvarial fracture. Paranasal sinuses are clear. CT ANGIOGRAM OF THE HEAD AND NECK: Normal three-vessel morphology of the thoracic aortic arch. Patency of the nominate and imaged subclavian arteries. The common and internal carotid arteries are patent. The bilateral anterior and middle cerebral arteries are also patent. The vertebrobasilar system and posterior cerebral arteries are widely patent. origin of the right posterior cerebral artery. There is no aneurysm, high-grade stenosis, or proximal branch occlusion identified. Dural sinuses appear patent. The lung apices appear clear. Unremarkable soft tissues. No acute fracture. IMPRESSION: 1. Compared to the study from 07/06/2022, once again there is no acute intracranial abnormality, aneurysm, dissection, high-grade stenosis or arterial occlusion. 2. The white matter lesions with peripheral enhancement and vasogenic edema best seen on the MRI from 07/13/2022 are suboptimally evaluated by CT technique. Again, the primary differential considerations would include demyelinating disease versus neoplasm. Close follow-up with neurology is needed. ACT 112: Negative or not required by law. The above report was generated using voice recognition software. It may contain grammatical, syntax or spelling errors. Electronically signed by: Aaron Reyez M.D. 07/19/2022 5:15 PM Neck CTA 07/19/22 15:19 CT angio head w con, CT angio neck with con, CT head/brain wo con CLINICAL HISTORY: 31 years-old Male with aphasia, bilateral lower facial weakness. Acute strokelike symptoms COMPARISON STUDY: Brain MRI 07/13/2022 TECHNIQUE: Unenhanced axial CT scan of the brain is performed. Subsequently, following the IV administration of 106 cc of Optiray, CT angiogram of the head and neck was performed from the aortic arch to the skull apex. Images are reviewed in the axial, sagittal, and coronal planes. 3-D MIPS images are created and assessed. IV contrast was administered without complication. All measurements were obtained according to NASCET criteria. A dose lowering technique was utilized adhering to the principles of ALARA. CT DOSE: 1196.50 mGy.cm FINDINGS: CT BRAIN: There is no acute intracranial hemorrhage, midline shift, hydrocephalus, acute territorial infarct or abnormal extra-axial collections. Ill-defined white matter aNo lesions throughout the left greater than right cerebral hemispheres redemonstrated with surrounding associated vasogenic edema, pronounced in the left frontal and parietal lobes. These lesions demonstrate areas of peripheral enhancement on the prior MRI. The mastoid air cells and middle ear cavities are clear. No calvarial fracture. Paranasal sinuses are clear. CT ANGIOGRAM OF THE HEAD AND NECK: Normal three-vessel morphology of the thoracic aortic arch. Patency of the nominate and imaged subclavian arteries. The common and internal carotid arteries are patent. The bilateral anterior and middle cerebral arteries are also patent. The vertebrobasilar system and posterior cerebral arteries are widely patent. origin of the right posterior cerebral artery. There is no aneurysm, high-grade stenosis, or proximal branch occlusion identified. Dural sinuses appear patent. The lung apices appear clear. Unremarkable soft tissues. No acute fracture. IMPRESSION: 1. Compared to the study from 07/06/2022, once again there is no acute intracranial abnormality, aneurysm, dissection, high-grade stenosis or arterial occlusion. 2. The white matter lesions with peripheral enhancement and vasogenic edema best seen on the MRI from 07/13/2022 are suboptimally evaluated by CT technique. Again, the primary differential considerations would include demyelinating disease versus neoplasm. Close follow-up with neurology is needed. ACT 112: Negative or not required by law. The above report was generated using voice recognition software. It may contain grammatical, syntax or spelling errors. Electronically signed by: Aaron Reyez M.D. 07/19/2022 5:15 PM Cervical Spine MRI 07/19/22 22:15 Exam(s): MRI C SPINE IV Amt: 8cc gadavist EXAM: MR Cervical Spine With Intravenous Contrast CLINICAL HISTORY: Reason for exam: MS eval. TECHNIQUE: Magnetic resonance images of the cervical spine with intravenous contrast in multiple planes. CONTRAST: Patient received 8cc gadavist of IV contrast COMPARISON: Comparison made to prior CT angiogram of the neck from July 06, 2022. FINDINGS: Vertebrae: There are 7 cervical type vertebral bodies with a mild generalized curve to the left and shallow cervical lordosis. There is normal vertebral body height and alignment. The bone marrow signal is normal. No acute fracture. Spinal cord: The cord is normal in size, shape and signal characteristics. The craniocervical junction is normal without evidence of Chiari malformation. No abnormal enhancement. Soft tissues: The cervical flow voids are intact. DISCS/SPINAL CANAL/NEURAL FORAMINA: C2-C3: The intervertebral disc is normal. Minimal facet arthropathy with mild sinus. C3-C4: There is mild disc degeneration with disc desiccation and annular disc bulge flattening the intrathecal sac. There is minimal to mild facet arthropathy with mild synovitis. C4-C5: There is mild disc degeneration with disc desiccation and annular disc bulge eccentric to the right flattening the ventral thecal sac. There is mild facet arthropathy with mild synovitis. C5-C6: There is mild disc degeneration with disc desiccation and annular disc bulge eccentric to the right flattening the ventral thecal sac. There is mild facet arthropathy with mild synovitis. C6-C7: The intervertebral disc is normal. There is mild right and minimal left facet arthropathy with mild synovitis. C7-T1: The intervertebral disc is normal. There is mild facet joint arthropathy with mild synovitis. IMPRESSION: 1. Mild disc degeneration at C3-4, C4-5 and C5-6 with annular disc bulging flattening the ventral thecal sac.. 2. There is no spinal canal stenosis. 3. No evidence of neural foraminal stenosis. 4. Minimal to mild facet arthropathy with mild synovitis. 5. No evidence of fracture, infection, tumor or myelopathy. Electronically signed by: Marielos Rajan MD 07/20/22 01:04 AM Lumbar Puncture 07/20/22 12:39 Lumbar puncture under fluoroscopy INDICATION: MS PROCEDURE: Procedure and risks were explained. Informed consent was obtained. A final timeout was completed. The patient was placed prone on the fluoroscopic exam table. The lower lumbar region was prepped and draped in sterile fashion. 1% lidocaine was utilized for skin anesthesia. Utilizing fluoroscopic guidance, a 22-gauge needle was advanced into the intrathecal space at the L4-5 disc space level. Spot image was obtained. Approximately 8.5 mL of clear CSF fluid was removed and sent to the lab for analysis. The needle was removed and Band-Aid applied. The patient tolerated the procedure well. Total fluoroscopy time 0.1 minutes. DAP is 4.27 mcGy/m2. IMPRESSION: Lumbar puncture as above. Performed, dictated, and signed by Darius Cortés PA-C; to be co-signed by Dr. Aaron Reyez. Electronically signed by: Aaron Reyez M.D. 07/20/2022 3:43 PM Hospital Course (1) Multiple sclerosis: Dysarthria, suspect MS-related CThead, CTA h/neck: No acute abnormality, aneurysm, dissection, high-grade stenosis. White matter lesions with peripheral enhancement and vasogenic edema suboptimally evaluated by CT. MRI 07/13: Multiple intraparenchymal lesion, largest seen within the left centrum semiovale extending to the periventricular region measuring 2.3 x 1.5 x 2. 1 cm . No cysts significant edema seen surrounding the lesions.Differential diagnosis includes metastatic disease, atypical inflammatory, processes such as multiple sclerosis or infectious process. Case was discussed with on-call neurology prior to admission. - Recommended to continue IV steroids 1 g daily x 3 days (was being arranged outpatient already by Dr García prior to presentation/admission) - Complete pending MS work-up including MRI of cervical spine with and without contrast, lumbar puncture with MS panel while inpatient. - Discussed case with Kj Cortés PA-C, s/p LP on 07/21 -- MS panel pending at d/c Neurology consulted while inpatient --> rec 3 days IV methylprednisolone, then transition to 60mg prednisone x 5 days Speech consulted -- see note. 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 ALso provided info for applications/etc to use in meantime for communication given dysarthric symptoms Outpt f/u with Dr García arranged To return to ER w/ any worsening symptoms. PT/OT consulted prior to discharge -- ok for return home CM navigator ensured patient w/ PCP --> new PCP w/ Ashely Chavez 07/30 at 12:45pm (2) Vitamin D deficiency: Prior lows, seen by Endocrinology. Low 29 in 2019. Repeat 20.8, started and continue daily supplementation (3) Borderline Lyme serology: Prior IgM/IgG positive, WB was negative -- was sent on Doxy, therefor held doxy as not likely contributing to current symptamatology Repeat testing IgM positive, NEG IgG, WB pending Deferred conversion to rocephin, but can f/u WB outpatient. If + would need tx w/ Rocephin for [employer] coverage (note, extended doxy also to be able to cover) F/u WB w/ neuro f/u Plan s/p 3 days IV steroids, to continue prednisone 60mg x 5 days close f/u neurology for LP testing results outpt speech therapy new pcp appt in next 2 weeks as well w/ [facility] group Total Time Total Time Spent Total Time Spent (In Minutes): 60 Discharge Plan Discharge Items Patient Disposition: Home - Self-Care Reason For Visit: MS, DYSARTHRIA Discharge Diagnosis: Multiple Sclerosis Goals: You have been hospitalized for an acute medical problem. During your stay at [facility], we have made an effort to correct the problem that brought you to the hospital while keeping you as comfortable as possible. Medications were used to bring your condition under control and your discharge instructions will include directions for any medications you should take after leaving the hospital. Please make sure you see your Primary Care Provider as part of your follow up plan. Activity: As commented below Non-emergency contact: Primary Care Provider and Neurologist Call non-emergency contact if: you have any medication questions and your symptoms worsen Follow-up/Referrals: Tyler García MD [Physician] - 08/18/22 2:30 pm ((this was your prior appointment- neurology will reach out to you)) Ashely Chavez [Primary Care Provider] - 07/30/22 12:45 pm (Please arrive 15 minutes prior to arrival time) PCP,NO [Physician] - Diet: Regular Addtl Attending Provider Instructions: You have been hospitalized with concerns for MS flare. Neurology was consulted and you received IV steroids and recommendations are to continue prednisone 60mg by mouth daily for another 5 days. As discussed, you can split this into 20mg three times to prevent side effects from high dose steroids. You can continue an over the counter antacid or pepcid for reflux if this occurs. Please avoid ibuprofen/Aleve/Motrin while on high dose steroids. You had a lumbar puncture performed and send out testing for MS labs are still pending and can have follow up with Dr García as arranged. We have provided prescription for continued speech therapy outpatient given dys arthria. I have recommended you remain off work until seen by Neurology in follow up or cleared by your primary care provider. Please return to the ER with any worsening of your symptoms/inability to ambulate, keep up with oral intake/hydration status, or for any other symptoms concerning for you. It has been a pleasure being a part fo the medical team providing for you while you have been in the hospital. Take care! Pending Studies at Discharge: Yes Studies:: Lumbar Puncture testing, western blot Stand-Alone Forms: My [facility] [employer], Smoking Cessation Medications and DC Order Prescriptions: New cholecalciferol (vitamin D3) 25 mcg (1,000 unit) Capsule 1,000 unit PO QAM Qty: 30 0RF prednisone 20 mg tablet 60 mg PO DAILY 5 Days Qty: 15 0RF Continued Zyrtec 10 mg capsule 10 mg PO DAILY PRN (Reason: Allergy Symptoms) Discontinued methylprednisolone [Medrol (Ze)] 4 mg tablets,dose pack 4 mg PO .COMPLEX Qty: 21 0RF Rx Instructions: 4 mg PO TAKE DIRECTION; START ON DAY 4 AFTER IV SOLU-MEDROL doxycycline monohydrate 100 mg Tablet 100 mg PO BID Rx Instructions: STARTED 07/06/22--COURSE IS 42 DAYS FOR LYME DISEASE. Discharge Orders: Discharge Order (Routine); Ordered 07/21/22 Ordered By: America Bedolla Admission Data Admit Date/Time: 07/19/22 19:23 Attending Provider: Patrick Warren Admit Provider: Andre Talbot Primary Care Provider: Ashely Chavez Other Providers: Andre Talbot ; Tyler García Other Interventions: Discharge Summary Assessment (RN) Last Done: 07/21/22 14:01 Supervising Physician Co-Signing Physician Notes The patient was seen by me. The chart was reviewed. Case discussed with MARI Jamil. Agree with assessment and plan. He will be discharged home today, July 21 Coding Level of Care Code 28956 INP/OBS DISCH >30 MIN Diagnoses Multiple sclerosis G35 Vitamin D deficiency E55.9 Borderline Lyme serology R76.8
[2022-07-22 14:37] LABS: 18KDIGG Band NON-REACTIVE; 23KDIGG Band NON-REACTIVE; 23KDIGM Band NON-REACTIVE; 28KDIGG Band NON-REACTIVE; 30KDIGG Band NON-REACTIVE; 39KDIGG Band NON-REACTIVE; 39KDIGM Band NON-REACTIVE; 41KDIGG Band NON-REACTIVE; 41KDIGM Band NON-REACTIVE; 45KDIGG Band NON-REACTIVE; 58KDIGG Band NON-REACTIVE; 66KDIGG Band NON-REACTIVE; 93KDIGG Band NON-REACTIVE; Lyme Antibodies, WB IgG NEGATIVE (NEGATIVE); Lyme Antibodies, WB IgM NEGATIVE (NEGATIVE)
== END 2022-07-21 14:55 | disposition home or self-care (01) ==
LOC: 3N 14:42 → ED 14:42 → SUATTDRO 19:23 → 3N 22:08
DX: Z79.899 Other long term (current) drug therapy; R76.8 Other specified abnormal immunological findings in serum; R47.01 Aphasia; Z88.6 Allergy status to analgesic agent; G35 Multiple sclerosis; E55.9 Vitamin D deficiency, unspecified